=== PATIENT | male | born 1980 | race African-American/Black ===

== ENCOUNTER 2017-03-19 09:10 | Emergency (ER) | payer OTHER ==
[2017-03-19 09:26] VITALS: BP 174/115
--- NOTE | 2017-03-19 10:55 | UC ---
General HPI - HPI Summary HPI Summary: Patient presents with PMH of asthma. He states he recently started ice hockey and after he has been practicing he will leave the rink and later on has coughing spells. He states that the coughing when it occurs is nonproductive. He notes he has had two days where he felt nauseous. He states it is so severe that twice is has resulted in vomiting. He denies fever, chills, diarrhea, constipation, chest or abdominal pain, joint point, dyspnea associated with his symptoms. He denies any audible wheezing. He states he now is having rib pain with coughing, and at times his symptoms are worse at night. He does have albuterol but has not used it. Prior to the above the patient did have a cold which he feels has resolved. - History of Current Complaint Chief Complaint: UCGeneralIllness Stated Complaint: COUGH VOMITING Time Seen by Provider: 03/19/17 10:30 Hx Obtained From: Patient Onset/Duration: Lasting Days Timing: Intermittent Episodes Lasting: Onset Severity: Moderate Current Severity: Moderate Associated Signs & Symptoms: Positive: Cough, Nausea, Vomiting - Allergy/Home Medications Allergies/Adverse Reactions: Allergies Allergy/AdvReac Type Severity Reaction Status Date / Time No Known Allergies Allergy Verified 03/19/17 09:15 PMH/Surg Hx/FS Hx/Imm Hx Previously Healthy: Yes Respiratory History: Asthma - Surgical History Surgical History: Yes Surgery Procedure, Year, and Place: ORAL SURGERY - Family History Known Family History: Positive: Hypertension, Diabetes, Respiratory Disease - ASTHMA, Other - Hep C. - Social History Occupation: Employed Full-time Lives: Alone Alcohol Use: Weekly Alcohol Amount: 12 PACK/WEEK Substance Use Type: Marijuana Substance Use Comment - Amount & Last Used: no use in the last year Smoking Status (MU): Former Smoker Type: Cigarettes, Cigars Amount Used/How Often: 3 CIG/DAY Length of Time of Smoking/Using Tobacco: 15 years Have You Smoked in the Last Year: No When Did the Patient Quit Smoking/Using Tobacco: 03/08/16 Review of Systems Constitutional: Negative Skin: Negative Eyes: Negative ENT: Negative Respiratory: Cough Cardiovascular: Negative Gastrointestinal: Vomiting, Nausea Genitourinary: Negative Motor: Negative Neurovascular: Negative Musculoskeletal: Negative Neurological: Negative Psychological: Negative All Other Systems Reviewed And Are Negative: Yes Physical Exam Triage Information Reviewed: Yes Appearance: Well-Appearing Vital Signs: Initial Vital Signs Temp 97.5 F 03/19/17 09:15 Pulse 87 03/19/17 09:15 Resp 16 03/19/17 09:15 BP 174/115 03/19/17 09:15 Pulse Ox 100 03/19/17 09:15 Eye Exam: Normal ENT Exam: Normal Neck exam: Normal Neck: Positive: 1 Respiratory Exam: Normal Cardiovascular Exam: Normal Abdominal Exam: Normal Musculoskeletal Exam: Normal Neurological Exam: Normal Psychological Exam: Normal Skin Exam: Normal Course/Dx - Course Course Of Treatment: Patient presents with PMH of asthma and reports recent URI which resolved, and new activity ice hockey, following he has had nausea, vomiting x 2, and persistent coughing. The coughing he feels has caused rib pain , with no reported signs worrisome for ACS. He reports the rib pain is bilateral and occurs with the coghing only. The coughing also has resulted in vomiting x 2 episodes. He denies SOB, chest pain. I feel his symtpoms are related to a viral causing the nausea, and URI has caused a hyper-responsive ariway. He delcined a chest xray today. I did recommend that he use his albuterol routinely for the next 3-5 days especially before and after hockey. I gave his referral to PCP, and he already goes to [facility]. At the time of discharge he was hemodynamically stable and in agreement with the discharge plan. - Differential Dx - Multi-Symptom Differential Diagnoses: Other - bronchospasam nausea vomiting Provider Diagnoses: bronchospasam. nausea. vomiting Discharge - Discharge Plan Condition: Stable Disposition: HOME Prescriptions: Acetaminoph/Cod 120/12 mg LIQ* [Tylenol/Codeine 120/12 LIQ*] 10 ml PO Q4H PRN # 120 udc MDD 40 ml PRN Reason: Cough Benzonatate [TESSALON 200 MG CAP] 200 mg PO TID #14 cap Patient Education Materials: Bronchospasm (ED) Forms: *Work Release Referrals: [facility] [place] [facility] [Outside] Chris Jerome MD [Primary Care Provider] -
== END 2017-03-19 10:47 | disposition home or self-care (01) ==
LOC: UCEAST 09:10
DX: J98.01 Acute bronchospasm (principal); Z87.891 Personal history of nicotine dependence; R11.2 Nausea with vomiting, unspecified
CPT/HCPCS: 99212; G0463

== ENCOUNTER 2017-03-31 10:21 | Emergency (ER) | payer OTHER ==
[2017-03-31 11:09] VITALS: BP 186/115
--- NOTE | 2017-03-31 11:22 | UC ---
Abdominal Pain Male HPI - HPI Summary HPI Summary: Patient presents after being hit on right side of body during hockey by another player, has had rib pain on the outside of his left rib since this time. no pain with normal breathing, + pain with coughing, sneezing. has taken ibuprofen without relief. - also has elevated blood pressure. was dx'd by PCP years ago, started on BP meds 04/2016, only took a few doses. Since than patient states continues to run high around 180/100s when taking at drug stores. patient states he does not like his PCP so he didn't go back. - also has h/o asthma with increased coughing with activities. usually controlled with albuterol PRN and coughing, however unable to cough currently due to pain. no decrease in activities, wheezing. - History of Current Complaint Chief Complaint: UCGeneralIllness Stated Complaint: LEFT RIB INJURY Time Seen by Provider: 03/31/17 11:13 Hx Obtained From: Patient Onset/Duration: Sudden Onset, Lasting Days Severity Initially: Moderate Severity Currently: Moderate Character: Aching, Sharp - with coughing Aggravating Factor(s): Deep Breaths - coughing Associated Signs And Symptoms: Positive: Cough - Allergies/Home Medications Allergies/Adverse Reactions: Allergies Allergy/AdvReac Type Severity Reaction Status Date / Time No Known Allergies Allergy Verified 03/31/17 11:00 PMH/Surg Hx/FS Hx/Imm Hx Previously Healthy: No - htn, asthma - Surgical History Surgical History: Yes Surgery Procedure, Year, and Place: ORAL SURGERY - Family History Known Family History: Positive: Hypertension, Diabetes, Respiratory Disease - ASTHMA, Other - Hep C. - Social History Alcohol Use: Weekly Alcohol Amount: 12 PACK/WEEK Substance Use Type: Marijuana Substance Use Comment - Amount & Last Used: no use in the last year Smoking Status (MU): Former Smoker Type: Cigarettes, Cigars Amount Used/How Often: 3 CIG/DAY Length of Time of Smoking/Using Tobacco: 15 years Have You Smoked in the Last Year: No When Did the Patient Quit Smoking/Using Tobacco: 03/08/16 Review of Systems Respiratory: Cough Is Patient Immunocompromised?: No All Other Systems Reviewed And Are Negative: Yes Physical Exam Triage Information Reviewed: Yes Appearance: Well-Appearing, No Pain Distress, Well-Nourished Vital Signs: Initial Vital Signs Temp 98.8 F 03/31/17 11:02 Pulse 73 03/31/17 11:02 Resp 20 03/31/17 11:02 BP 186/115 03/31/17 11:02 Pulse Ox 98 03/31/17 11:02 Vital Signs Reviewed: Yes Eyes: Positive: Conjunctiva Clear Respiratory: Positive: Chest non-tender, Lungs clear, Normal breath sounds - diminish b/l LLs, No respiratory distress, No accessory muscle use. Negative: Crackles, Rhonchi, Stridor, Wheezing Cardiovascular: Positive: RRR, No Murmur, Pulses Normal, Brisk Capillary Refill Abdomen Description: Positive: No Organomegaly, Soft, Other: - tenderness over L lateral lower ribs with deep palpation. Negative: CVA Tenderness (R), CVA Tenderness (L) Musculoskeletal Exam: Normal Neurological Exam: Normal Psychological Exam: Normal Abd Pain Male Course/Dx - Course Course Of Treatment: HTN addressed- patient does not want to have treatment today regarding this, was educated on dangers of having blood pressure be this elevated- patient had prescription medication lisinopril 5mg from PCP with him , advised to restart taking medication, monitor BP daily, and follow up with PCP as soon as possible. Patient in agreement. radiograph neg for fracture, no splenomegaly, lidoderm patch and OTcs for pain. for asthma- chronic cough and SOB, using inhaler up to 5 times a day, started on steroid inhaled to decrease symptoms, follow up with PCP. - Differential Dx/Clinical Impression Provider Diagnoses: rib contusion, HTN Discharge - Discharge Plan Condition: Good Disposition: HOME Prescriptions: Beclomethasone 40 MCG MDI(NF) [Qvar 40 MCG MDI(NF)] 1 puff INH BID #1 mdi Lidocaine PATCH 5%* [Lidoderm 5% Patch*] 1 patch TRANSDERM DAILY #10 patch Patient Education Materials: Contusion in Adults (ED), Hypertension (ED) Referrals: Yola Guy MD [Primary Care Provider] - Additional Instructions: - motrin 600 mg every 6 hours for next 48 hours - Q-rad twice a day x 3 days to see if helps with symptoms- if no benefit may stop - FOllow up with primary physician regarding hypertension- educated on dangers of elevated BP- restart medication prescribed lisinopril 5mg and routine blood pressure checks 0 lidoderm patches as needed for pain, 12 hours on 12 hours off
--- NOTE | 2017-03-31 12:02 | RAD ---
Indication: Left lower rib pain. 3 views of left ribs demonstrates no fracture. No other bone or joint abnormality is identified. IMPRESSION: No fracture of left ribs is noted.
== END 2017-03-31 12:23 | disposition home or self-care (01) ==
LOC: UCEAST 10:21
DX: T14.8XXA Other injury of unspecified body region, initial encounter (principal); I10 Essential (primary) hypertension; W50.0XXA Accidental hit or strike by another person, initial encounter; Y93.69 Activity, other involving other sports and athletics played as a team or group
CPT/HCPCS: 99212; G0463

== ENCOUNTER 2017-05-19 13:42 | Emergency (ER) | payer OTHER ==
[2017-05-19 14:03] VITALS: BP 167/102
[2017-05-19] MEDS ORDERED: Benzonatate CAP* 100 MG PO ONE (14:51)
[2017-05-19] MEDS ORDERED: Benzonatate CAP* 100 MG ONE (14:53)
--- NOTE | 2017-05-19 14:53 | UC ---
Respiratory Complaint HPI - History of Current Complaint Chief Complaint: UCRespiratory Stated Complaint: COUGH Time Seen by Provider: 05/19/17 14:39 Hx Obtained From: Patient Onset/Duration: Gradual Onset Timing: Constant Severity Initially: Moderate Severity Currently: None Alleviating Factors: Bronchodilator Associated Signs And Symptoms: Positive: Fever, Chills - Allergies/Home Medications Allergies/Adverse Reactions: Allergies Allergy/AdvReac Type Severity Reaction Status Date / Time No Known Allergies Allergy Verified 03/31/17 11:00 PMH/Surg Hx/FS Hx/Imm Hx - Surgical History Surgical History: Yes Surgery Procedure, Year, and Place: ORAL SURGERY - Family History Known Family History: Positive: Hypertension, Diabetes, Respiratory Disease - ASTHMA, Other - Hep C. - Social History Alcohol Use: Weekly Alcohol Amount: 12 PACK/WEEK Substance Use Type: Marijuana Substance Use Comment - Amount & Last Used: no use in the last year Smoking Status (MU): Former Smoker Type: Cigarettes, Cigars Amount Used/How Often: 3 CIG/DAY Length of Time of Smoking/Using Tobacco: 15 years Have You Smoked in the Last Year: No When Did the Patient Quit Smoking/Using Tobacco: 03/08/16 Review of Systems Constitutional: Fever, Chills Skin: Negative Eyes: Negative ENT: Negative Respiratory: Cough Cardiovascular: Negative Genitourinary: Negative All Other Systems Reviewed And Are Negative: Yes Physical Exam Triage Information Reviewed: Yes Appearance: Well-Appearing, No Pain Distress, Well-Nourished Vital Signs: Initial Vital Signs Temp 37.2 C 05/19/17 13:57 Pulse 72 05/19/17 13:57 Resp 16 05/19/17 13:57 BP 167/102 05/19/17 13:57 Pulse Ox 99 05/19/17 13:57 Eye Exam: Normal ENT: Positive: Pharyngeal erythema, Nasal congestion Dental Exam: Normal Neck exam: Normal Neck: Positive: Supple, Nontender Respiratory: Positive: Chest non-tender, Lungs clear, Normal breath sounds, No respiratory distress, No accessory muscle use Cardiovascular: Positive: RRR, No Murmur Abdomen Description: Positive: Nontender, No Organomegaly, Soft Musculoskeletal Exam: Normal UC Diagnostic Evaluation - Laboratory O2 Sat by Pulse Oximetry: 99 Respiratory Course/Dx - Course Course Of Treatment: Patient did not want to stay for Xray since 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 He wanted tessalon for his cough. - Differential Dx/Diagnosis Differential Diagnosis/HQI/PQRI: Bronchitis, Lower Resp Infection, Sinusitis Provider Diagnoses: Viral illness Discharge - Discharge Plan Condition: Good Disposition: HOME Prescriptions: Benzonatate CAP* [Tessalon 100 MG CAP*] 100 mg PO TID PRN #15 cap PRN Reason: Cough Patient Education Materials: Cold Symptoms (ED) Forms: *Work Release Referrals: Yola Guy MD [Primary Care Provider] -
== END 2017-05-19 14:56 | disposition home or self-care (01) ==
LOC: UCEAST 13:42
DX: B34.9 Viral infection, unspecified (principal); Z87.891 Personal history of nicotine dependence
CPT/HCPCS: 99212; A9270-GY; G0463

== ENCOUNTER 2017-07-13 09:40 | Emergency (ER) | payer OTHER ==
[2017-07-13 09:53] VITALS: BP 156/117
--- NOTE | 2017-07-13 10:13 | UC ---
Respiratory Complaint HPI - HPI Summary HPI Summary: 37 yo male with cough/wheezing this AM no f/c no st or runny nose had flu 3-4 weeks ago no cp or sob - History of Current Complaint Chief Complaint: UCGeneralIllness Stated Complaint: CONGESTED, COUGH Time Seen by Provider: 07/13/17 09:57 Hx Obtained From: Patient Onset/Duration: Gradual Onset, Lasting Hours Timing: Constant Severity Initially: Moderate Severity Currently: Moderate Pain Intensity: 0 Pain Scale Used: 0-10 Numeric Character: Cough: Productive Aggravating Factors: Nothing Alleviating Factors: Bronchodilator Associated Signs And Symptoms: Positive: Wheezing - Allergies/Home Medications Allergies/Adverse Reactions: Allergies Allergy/AdvReac Type Severity Reaction Status Date / Time No Known Allergies Allergy Verified 07/13/17 09:49 Home Medications: Home Medications Lisinopril [Zestril 5 MG-] 5 mg PO DAILY 07/13/17 [History Confirmed 07/13/17] PMH/Surg Hx/FS Hx/Imm Hx Previously Healthy: Yes Cardiovascular History: Hypertension Respiratory History: Asthma - Surgical History Surgical History: Yes Surgery Procedure, Year, and Place: ORAL SURGERY - Family History Known Family History: Positive: Hypertension, Diabetes, Respiratory Disease - ASTHMA, Other - Hep C. - Social History Alcohol Use: Weekly Alcohol Amount: 12 PACK/WEEK Substance Use Type: Marijuana Substance Use Comment - Amount & Last Used: no use in the last year Smoking Status (MU): Former Smoker Type: Cigarettes, Cigars Amount Used/How Often: 3 CIG/DAY Length of Time of Smoking/Using Tobacco: 15 years Have You Smoked in the Last Year: No When Did the Patient Quit Smoking/Using Tobacco: 03/08/16 Review of Systems Constitutional: Negative Skin: Negative Eyes: Negative ENT: Negative Respiratory: Cough Cardiovascular: Negative Gastrointestinal: Negative Genitourinary: Negative Motor: Negative Neurovascular: Negative Musculoskeletal: Negative Neurological: Negative Psychological: Negative Is Patient Immunocompromised?: No All Other Systems Reviewed And Are Negative: Yes Physical Exam Triage Information Reviewed: Yes Appearance: Well-Appearing, No Pain Distress, Well-Nourished Vital Signs: Initial Vital Signs Temp 98 F 07/13/17 09:50 Pulse 82 07/13/17 09:50 Resp 15 07/13/17 09:50 BP 156/117 07/13/17 09:50 Pulse Ox 100 07/13/17 09:50 Vital Signs Reviewed: Yes Eyes: Positive: Conjunctiva Clear ENT: Positive: Hearing grossly normal, Uvula midline. Negative: Nasal congestion, Nasal drainage, Tonsillar swelling, Tonsillar exudate, Trismus, Muffled voice, Hoarse voice, Dental tenderness, Sinus tenderness Dental Exam: Normal Neck: Positive: Supple, Nontender, No Lymphadenopathy Respiratory: Positive: No respiratory distress, No accessory muscle use, Respiratory distress, Wheezing Cardiovascular: Positive: RRR, No Murmur Musculoskeletal: Positive: ROM Intact, No Edema Neurological: Positive: Alert Psychological Exam: Normal Skin Exam: Normal UC Diagnostic Evaluation - Laboratory O2 Sat by Pulse Oximetry: 100 - normal/not hypoxic Respiratory Course/Dx - Differential Dx/Diagnosis Provider Diagnoses: acute asthmatic bronchitis Discharge - Discharge Plan Condition: Stable Disposition: HOME Prescriptions: Amoxicillin PO (*) [Amoxicillin 875 MG (*)] 875 mg PO BID #14 tab Benzonatate CAP* [Tessalon CAP*] 100 - 200 mg PO TID PRN #28 cap PRN Reason: Cough predniSONE [Deltasone] 40 mg PO DAILY #10 tab Patient Education Materials: Acute Bronchitis (ED) Forms: *Work Release Referrals: No Primary Care Phys,NOPCP [Primary Care Provider] - Additional Instructions: use inhaler as directed recheck for new or worsening symptoms see your provider later this month as planned to have BP rechecked
== END 2017-07-13 10:30 | disposition home or self-care (01) ==
LOC: UCEAST 09:40
DX: J45.909 Unspecified asthma, uncomplicated (principal); Z87.891 Personal history of nicotine dependence
CPT/HCPCS: 99212; G0463

== ENCOUNTER 2017-07-16 12:22 | Emergency (ER) | payer OTHER ==
[2017-07-16 14:03] VITALS: BP 155/100
--- NOTE | 2017-07-16 15:55 | UC ---
Rohini Heard Julia, scribed for Efrain Gupta MD on 07/16/17 at 1503 . HPI Febrile Illness - HPI Summary HPI Summary: This patient is a 37 year old M presenting to [facility] [place] with a chief complaint of fever, reaching 102, for the past three days. Patient reports dizziness, one retching episode, increased inhaler use, and mild body aches. Patient denies nausea. Pt had dx of bronchitis on 07/13/17 and was prescribed Prednisone and Amoxicillin. - History of Current Complaint Chief Complaint: UCGeneralIllness Time Seen by Provider: 07/16/17 14:52 Hx Obtained From: Patient Onset/Duration: Started Days Ago, Still Present Timing: Constant Temperature: 102 F Pain Intensity: 0 Associated Signs and Symptoms: Other: - dizziness, one retching episode, increased inhaler use, and mild body aches Related History: Similar Diagnosis as: - bronchitis - Allergy/Home Medications Allergies/Adverse Reactions: Allergies Allergy/AdvReac Type Severity Reaction Status Date / Time No Known Allergies Allergy Verified 07/16/17 14:03 PMH/Surg Hx/FS Hx/Imm Hx Respiratory History: Asthma, Bronchitis - Surgical History Surgical History: Yes Surgery Procedure, Year, and Place: ORAL SURGERY - Family History Known Family History: Positive: Hypertension, Diabetes, Respiratory Disease - ASTHMA, Other - Hep C. - Social History Alcohol Use: Weekly Alcohol Amount: 12 PACK/WEEK Substance Use Type: Marijuana Substance Use Comment - Amount & Last Used: no use in the last year Smoking Status (MU): Former Smoker Type: Cigarettes, Cigars Amount Used/How Often: 3 CIG/DAY Length of Time of Smoking/Using Tobacco: 15 years Have You Smoked in the Last Year: No When Did the Patient Quit Smoking/Using Tobacco: 03/08/16 Review of Systems Constitutional: Fever Gastrointestinal: Vomiting - once Musculoskeletal: Myalgia - body aches Neurological: Other - dizzy All Other Systems Reviewed And Are Negative: Yes Physical Exam Triage Information Reviewed: Yes Vital Signs: Initial Vital Signs Temp 98.8 F 07/16/17 13:59 Pulse 79 07/16/17 13:59 Resp 16 07/16/17 13:59 BP 155/100 07/16/17 13:59 Pulse Ox 98 07/16/17 13:59 Vital Signs Reviewed: Yes - Additional Comments General: well-appearing, no pain distress Skin: warm, color reflects adequate perfusion, dry Head: normal Eyes: EOMI, KATHLEEN ENT: clear rhinorrhea Neck: supple, nontender Respiratory: CTA, breath sounds present Cardiovascular: RRR Abdomen: soft, nontender Bowel: present Musculoskeletal: normal, strength/ROM intact Neurological: normal, sensory/motor intact, A&O x3 Psychological: affect/mood appropriate Course/Dx - Course Course Of Treatment: OVER ALL, SX ARE IMPROVING BUT, STILL WITH LOW GRADE FEVERS. - Diagnoses Clinic Provider Diagnoses: BRONCHITIS Discharge - Discharge Plan Condition: Stable Disposition: HOME Patient Education Materials: Acute Bronchitis (ED) Forms: *School Release Referrals: [facility] [place] [facility] REFERRAL [Outside] No Primary Care Phys,NOPCP [Primary Care Provider] - Additional Instructions: FOLLOW UP WITH YOUR DOCTOR. TAKE IBUPROFEN DIRECTED NEEDED FOR FEVERS. GET RECHECKED FOR ANY WORSENING OF YOUR CONDITION OR QUESTIONS OR CONCERNS. The documentation as recorded by the Rohini le Julia accurately reflects the service I personally performed and the decisions made by me, Efrain Gupta MD.
== END 2017-07-16 15:21 | disposition home or self-care (01) ==
LOC: UCEAST 12:22
DX: J45.909 Unspecified asthma, uncomplicated (principal); R42 Dizziness and giddiness; M79.1 Myalgia; R50.9 Fever, unspecified; R11.10 Vomiting, unspecified; Z87.891 Personal history of nicotine dependence
CPT/HCPCS: 99211; G0463

== ENCOUNTER 2017-11-10 13:43 | Emergency (ER) | payer OTHER ==
[2017-11-10 14:38] VITALS: BP 168/92
--- NOTE | 2017-11-10 14:38 | UC ---
Enedina Heard Gabriel, scribed for Priya Sams MD on 11/10/17 at 1425 . Respiratory Complaint HPI - HPI Summary HPI Summary: This patient is a 37 year old M presenting to [facility] [place] progressively worse allergic reaaction. + cough related to "scratchy" throat. No fever / chills. No purulent drainage. No sob / cp. No rash. Has been using albuterol much more frequently last couple days, which helps symptoms. Has taken prednisone in the past, with improvement in sx. Denies h/a, chest pain, palpitations, sob, urinary sx / hematuria. Pt was instructed to call his PCP about his blood pressure several times. He was urged to see them this week. - History of Current Complaint Chief Complaint: UCRespiratory Stated Complaint: ALLERGIES Time Seen by Provider: 11/10/17 14:06 Hx Obtained From: Patient Onset/Duration: Lasting Days, Still Present Severity Initially: Mild Severity Currently: Mild Pain Intensity: 0 Pain Scale Used: 0-10 Numeric Character: Cough: Nonproductive Associated Signs And Symptoms: Positive: Negative - rash - Allergies/Home Medications Allergies/Adverse Reactions: Allergies Allergy/AdvReac Type Severity Reaction Status Date / Time No Known Allergies Allergy Verified 11/10/17 13:50 PMH/Surg Hx/FS Hx/Imm Hx Previously Healthy: Yes - being treated for htn Cardiovascular History: Hypertension Respiratory History: Asthma - Surgical History Surgical History: Yes Surgery Procedure, Year, and Place: ORAL SURGERY - Family History Known Family History: Positive: Hypertension, Diabetes, Respiratory Disease - ASTHMA, Other - Hep C. - Social History Occupation: Employed Full-time Lives: With Family Alcohol Use: Weekly Alcohol Amount: 12 PACK/WEEK Substance Use Type: Marijuana Substance Use Comment - Amount & Last Used: no use in the last year Smoking Status (MU): Former Smoker Type: Cigarettes, Cigars Amount Used/How Often: 3 CIG/DAY Length of Time of Smoking/Using Tobacco: 15 years Have You Smoked in the Last Year: No When Did the Patient Quit Smoking/Using Tobacco: 03/08/16 Review of Systems Skin: Negative - rash ENT: Other - scratchy throat Respiratory: Cough, Other - asthma exacerbation Cardiovascular: Negative Gastrointestinal: Negative Genitourinary: Negative Motor: Negative Neurovascular: Negative Musculoskeletal: Negative Neurological: Negative Psychological: Negative Is Patient Immunocompromised?: No All Other Systems Reviewed And Are Negative: Yes Physical Exam - Summary Physical Exam Summary: Appearance: Well-Nourished Eye Exam: Normal ENT Exam: right TM is scared, post nasal drip, posterior pharynx is erythematous. Neck: Normal, No adenopathy appreciated Respiratory Exam: Normal, no dyspnea, no tachypnea, normal respiratory rate. Chest non-tender, Lungs clear, Normal breath sounds, No respiratory distress, No accessory muscle use Cardiovascular Exam: Normal Cardiovascular: Heart rate regular, good general skin color, good capillary refill: RRR, No Murmur Abdominal Exam: Normal Abdomen Description: Nontender, No Organomegaly, Soft Bowel Sounds: Present Musculoskeletal Exam: Normal Musculoskeletal: Strength Intact Neurological Exam: Normal: nonfocal, grossly intact Psychological Exam: Normal: conversing easily and appropriately Skin Exam: Normal: no visible or reported rash Triage Information Reviewed: Yes Appearance: Well-Appearing, Well-Nourished - sitting up Vital Signs: Initial Vital Signs Temp 98 F 11/10/17 13:47 Pulse 80 11/10/17 13:47 Resp 16 11/10/17 13:47 BP 158/108 11/10/17 13:47 Pulse Ox 99 11/10/17 13:47 Vital Signs Reviewed: Yes UC Diagnostic Evaluation - Laboratory O2 Sat by Pulse Oximetry: 99 Respiratory Course/Dx - Course Course Of Treatment: Repeat blood pressure 168/92. Does not want to be evaluated further for BP. He will call doctor's office, for bp recheck this week. Aware to seek medicall attention for any problems. Questions as posed answered to the best of my ability. - Differential Dx/Diagnosis Provider Diagnoses: Worsening allergic sx. HTN Discharge - Sign-Out/Discharge Documenting (check all that apply): Discharge/Admit/Transfer - Discharge Plan Condition: Stable Disposition: HOME Patient Education Materials: Allergies (ED), General Allergic Reaction (ED), Hypertension (ED), Antihistamine (By mouth) Referrals: No Primary Care Phys,NOPCP [Primary Care Provider] - Yola Guy MD [Medical Doctor] - Additional Instructions: Your blood pressure was elevated during today's visit, 158/108. Please follow up with your primary care provider -THIS WEEK. Avoid decongestants. Drink plenty of fluids. Please seek medical attention for worse or new problems. - Billing Disposition and Condition Condition: STABLE Disposition: Home The documentation as recorded by the Enedina le Gabriel accurately reflects the service I personally performed and the decisions made by me, Priya Sams MD.
== END 2017-11-10 14:43 | disposition home or self-care (01) ==
LOC: UCEAST 13:43
DX: T78.40XA Allergy, unspecified, initial encounter (principal); X58.XXXA Exposure to other specified factors, initial encounter; R05 Cough; R07.0 Pain in throat; I10 Essential (primary) hypertension; Z87.891 Personal history of nicotine dependence; Z82.49 Family history of ischemic heart disease and other diseases of the circulatory system; Z83.3 Family history of diabetes mellitus; Z82.5 Family history of asthma and other chronic lower respiratory diseases
CPT/HCPCS: 99212; G0463

== ENCOUNTER 2018-07-08 10:22 | Emergency (ER) | payer OTHER ==
[2018-07-08 10:39] VITALS: BP 165/113
[2018-07-08] MEDS ORDERED: predniSONE TAB* 20 MG PO ONE (10:46)
--- NOTE | 2018-07-08 10:47 | UC ---
Respiratory Complaint HPI - HPI Summary HPI Summary: Patient is a 38-year-old male with a 4 day history of wheezing and productive cough. He has had no fever. He denies any shortness of breath or chest pain. He has very mild myalgias. He denies any sinus pressure or pain. His had asthma since a child. He is currently being treated for high blood pressure. Relying on his rescue inhaler. - History of Current Complaint Chief Complaint: UCRespiratory Stated Complaint: COUGH Time Seen by Provider: 07/08/18 10:29 Hx Obtained From: Patient Onset/Duration: Gradual Onset Timing: Constant Severity Initially: Mild Severity Currently: Moderate Pain Intensity: 2 Pain Scale Used: 0-10 Numeric Character: Cough: Nonproductive Aggravating Factors: Nothing Associated Signs And Symptoms: Positive: Wheezing Related History: Similar Episode/Dx as: - Bronchitis - Allergies/Home Medications Allergies/Adverse Reactions: Allergies Allergy/AdvReac Type Severity Reaction Status Date / Time No Known Allergies Allergy Verified 11/10/17 13:50 PMH/Surg Hx/FS Hx/Imm Hx Previously Healthy: Yes Cardiovascular History: Hypertension Respiratory History: Asthma, Bronchitis, Pneumonia - Surgical History Surgical History: Yes Surgery Procedure, Year, and Place: ORAL SURGERY - Family History Known Family History: Positive: Hypertension, Diabetes, Respiratory Disease - ASTHMA, Other - Hep C. - Social History Alcohol Use: Weekly Alcohol Amount: 6 weekly Substance Use Type: Marijuana Substance Use Comment - Amount & Last Used: occasionally Smoking Status (MU): Former Smoker Type: Cigarettes, Cigars Amount Used/How Often: 3 CIG/DAY Length of Time of Smoking/Using Tobacco: 15 years Have You Smoked in the Last Year: No When Did the Patient Quit Smoking/Using Tobacco: 03/08/16 Review of Systems All Other Systems Reviewed And Are Negative: Yes Constitutional: Positive: Negative Skin: Positive: Negative Eyes: Positive: Negative ENT: Positive: Negative Respiratory: Positive: Cough, Other - wheezing Cardiovascular: Positive: Negative Gastrointestinal: Positive: Negative Genitourinary: Positive: Negative Motor: Positive: Negative Neurovascular: Positive: Negative Musculoskeletal: Positive: Negative Neurological: Positive: Negative Psychological: Positive: Negative Physical Exam Triage Information Reviewed: Yes Appearance: Well-Appearing, No Pain Distress, Well-Nourished Vital Signs: Initial Vital Signs Temp 99.1 F 07/08/18 10:33 Pulse 80 07/08/18 10:33 Resp 20 07/08/18 10:33 BP 165/113 07/08/18 10:33 Pulse Ox 97 07/08/18 10:33 Vital Signs Reviewed: Yes Eyes: Positive: Conjunctiva Clear ENT: Positive: Hearing grossly normal, Uvula midline. Negative: Nasal congestion, Nasal drainage, Tonsillar swelling, Tonsillar exudate, Sinus tenderness Neck: Positive: Supple, Nontender, No Lymphadenopathy Respiratory: Positive: No respiratory distress, No accessory muscle use, Wheezing Cardiovascular: Positive: RRR Musculoskeletal: Positive: ROM Intact, No Edema Neurological: Positive: Alert Psychological Exam: Normal Skin Exam: Normal UC Diagnostic Evaluation - Laboratory O2 Sat by Pulse Oximetry: 97 - normal/not hypoxic Respiratory Course/Dx - Course Course Of Treatment: declines neb here - Differential Dx/Diagnosis Provider Diagnosis: Bronchospasm with bronchitis, acute Discharge - Sign-Out/Discharge Documenting (check all that apply): Patient Departure All imaging exams completed and their final reports reviewed: No Studies - Discharge Plan Condition: Stable Disposition: HOME Prescriptions: Azithromycin TAB* [Zithromax TAB*] 250 mg PO DAILY #6 tab Benzonatate CAP* [Tessalon CAP*] 100 - 200 mg PO TID PRN #28 cap PRN Reason: Cough predniSONE [Deltasone 20 MG TAB] 40 mg PO DAILY #10 tab Patient Education Materials: Acute Bronchitis (ED) Forms: *Work Release Additional Instructions: recheck in 4 days if not better see your MD for bp recheck in 2-8 weeks BP 165/113 - Billing Disposition and Condition Condition: STABLE Disposition: Home
== END 2018-07-08 11:00 | disposition home or self-care (01) ==
LOC: UCEAST 10:22
DX: J20.9 Acute bronchitis, unspecified (principal); J45.909 Unspecified asthma, uncomplicated; I10 Essential (primary) hypertension; M79.10 Myalgia, unspecified site; Z82.5 Family history of asthma and other chronic lower respiratory diseases; Z87.891 Personal history of nicotine dependence; Z87.01 Personal history of pneumonia (recurrent)
CPT/HCPCS: 99212; G0463; J7512

== ENCOUNTER 2019-05-12 13:51 | Emergency (ER) | payer OTHER ==
--- NOTE | 2019-05-12 14:13 | UC ---
Respiratory Complaint HPI - HPI Summary HPI Summary: 39 yo male presents with URI symptoms. He tells me that for the last 2 weeks he has had an intermittently productive cough. He has an albuterol inhaler at home which helps, but has noticed he is using it more frequently over the last week or so. Also has had sinus congestion and runny nose with yellow mucus. He has not been taking anything OTC for his symptoms. Denies fever, chills, sore throat , SOB, chest pain. He does smoke occasionally - History of Current Complaint Stated Complaint: COUGH Time Seen by Provider: 05/12/19 14:12 Hx Obtained From: Patient Onset/Duration: Gradual Onset Severity Initially: Mild Severity Currently: Mild Pain Intensity: 5 Pain Scale Used: 0-10 Numeric - Allergies/Home Medications Allergies/Adverse Reactions: Allergies Allergy/AdvReac Type Severity Reaction Status Date / Time No Known Allergies Allergy Verified 11/10/17 13:50 PMH/Surg Hx/FS Hx/Imm Hx Cardiovascular History: Hypertension Respiratory History: Asthma - Surgical History Surgical History: Yes Surgery Procedure, Year, and Place: ORAL SURGERY - Family History Known Family History: Positive: Hypertension, Diabetes, Respiratory Disease - ASTHMA, Other - Hep C. - Social History Lives: With Family Alcohol Use: Weekly Alcohol Amount: 6 weekly Substance Use Type: Marijuana Substance Use Comment - Amount & Last Used: occasionally Smoking Status (MU): Former Smoker Type: Cigarettes, Cigars Amount Used/How Often: 3 CIG/DAY Length of Time of Smoking/Using Tobacco: 15 years Have You Smoked in the Last Year: No When Did the Patient Quit Smoking/Using Tobacco: 03/08/16 Review of Systems All Other Systems Reviewed And Are Negative: No Constitutional: Positive: Negative Skin: Positive: Negative Eyes: Positive: Negative ENT: Positive: Nasal Discharge Respiratory: Positive: Cough Cardiovascular: Positive: Negative Gastrointestinal: Positive: Negative Neurological: Positive: Negative Psychological: Positive: Negative Physical Exam - Summary Physical Exam Summary: GENERAL: NAD. WDWN. No pain distress. SKIN: No rashes, sores, lesions, or open wounds. HEENT: Head: AT/NC Eyes: EOM intact. Conjunctiva clear without inflammation or discharge. Ears: Hearing grossly normal. TMs intact, no bulging, erythema, or edema. Nose: Nasal mucosa pink and moist. NTTP maxillary and frontal sinus. Throat: Posterior oropharynx without exudates, erythema, or tonsillar enlargement. Uvula midline. NECK: Supple. Nontender. No lymphadenopathy. CHEST: CTAB. No accessory muscle use. Breathing comfortably and in no distress. CV: RRR. Pulses intact. Cap refill <2seconds NEURO: Alert. PSYCH: Age appropriate behavior. Triage Information Reviewed: Yes Vital Signs: Vital Signs: Temp Pulse Resp BP Pulse Ox 98.3 F 78 18 158/90 98 05/12/19 14:11 05/12/19 14:11 05/12/19 14:11 05/12/19 14:11 05/12/19 14:11 Vital Signs Reviewed: Yes Respiratory Course/Dx - Course Course Of Treatment: Suspect viral cough/bronchitis. Will rx for prednisone and cough suppressants and have him be rechecked if symptoms do not improve - Differential Dx/Diagnosis Provider Diagnosis: Bronchitis Discharge ED - Sign-Out/Discharge Documenting (check all that apply): Patient Departure All imaging exams completed and their final reports reviewed: No Studies - Discharge Plan Condition: Stable Disposition: HOME Prescriptions: Benzonatate CAP* [Tessalon 100 MG CAP*] 100 mg PO TID PRN #21 cap PRN Reason: Cough Codeine Phosphate/Guaifenesin [Guaifen-Codeine 100-10 mg/5 ml] 5 ml PO BEDTIME PRN #35 ml MDD 5ml PRN Reason: Cough predniSONE TAB* [Deltasone 20 MG TAB*] 40 mg PO DAILY #10 tab Patient Education Materials: Acute Bronchitis (ED) Referrals: Yola Guy MD [Primary Care Provider] - Additional Instructions: If you develop a fever, shortness of breath, chest pain, new or worsening symptoms - please call your PCP or go to the ED immediately. Your blood pressure was high at todays visit. Please see your primary provider within 4 weeks for recheck and re-evaluation. - Billing Disposition and Condition Condition: STABLE Disposition: Home
[2019-05-12 14:17] VITALS: BP 158/90
[2019-05-12] MEDS ORDERED: Albuterol HFA INHALER* 8 gm MDI INH ONE (14:23)
== END 2019-05-12 14:36 | disposition home or self-care (01) ==
LOC: UCEAST 13:51
DX: J45.909 Unspecified asthma, uncomplicated (principal); I10 Essential (primary) hypertension; Z87.891 Personal history of nicotine dependence; Z79.899 Other long term (current) drug therapy
CPT/HCPCS: 99212; A9270-GY; G0463

== ENCOUNTER 2019-07-27 11:29 | Emergency (ER) | payer OTHER ==
[2019-07-27 12:07] VITALS: BP 198/125
--- NOTE | 2019-07-27 12:13 | UC ---
FLU HPI - HPI Summary HPI Summary: 39 yo male presents with GI symptoms. He tells me that last week his young son had a GI bug. On 07/25 pt developed nausea, vomiting, and diarrhea. He did supportive care and felt better yesterday with only one episode of vomiting. Today he feels better still and has not vomited, but has developed some sinus congestion and a cough. He is most concerned about the flu as he has a young son at home. He denies fever, chills, SOB, chest pain, abdominal pain, dysuria. His BP is elevated today. He has a hx of hypertension and has BP medication for this - he has not taken this in 3 days due to GI symptoms as above. He is not having any headache, dizziness, sob, chest pain, numbness, or tingling. - History of Current Complaint Chief Complaint: UCGeneralIllness Stated Complaint: VOMITTING Time Seen by Provider: 07/27/19 11:59 Hx Obtained From: Patient Onset/Duration: Sudden Onset Severity Currently: None Pain Intensity: 0 - Allergy/Home Medications Allergies/Adverse Reactions: Allergies Allergy/AdvReac Type Severity Reaction Status Date / Time No Known Allergies Allergy Verified 11/10/17 13:50 PMH/Surg Hx/FS Hx/Imm Hx Cardiovascular History: Hypertension Respiratory History: Asthma - Surgical History Surgical History: Yes Surgery Procedure, Year, and Place: ORAL SURGERY - Family History Known Family History: Positive: Hypertension, Diabetes, Respiratory Disease - ASTHMA, Other - Hep C. - Social History Lives: With Family Alcohol Use: Daily Alcohol Amount: 4-5 shots a day Substance Use Type: Marijuana Substance Use Comment - Amount & Last Used: rare Smoking Status (MU): Former Smoker Type: Cigarettes, Cigars Amount Used/How Often: 3 CIG/DAY Length of Time of Smoking/Using Tobacco: 15 years Have You Smoked in the Last Year: No When Did the Patient Quit Smoking/Using Tobacco: 03/08/16 Review of Systems All Other Systems Reviewed And Are Negative: No Constitutional: Positive: Negative Skin: Positive: Negative Eyes: Positive: Negative ENT: Positive: Nasal Discharge Respiratory: Positive: Cough Cardiovascular: Positive: Negative Gastrointestinal: Positive: Vomiting - resolved, Diarrhea - resolved, Nausea - resolved Genitourinary: Positive: Negative Neurovascular: Positive: Negative Neurological/Mental Status: Positive: Negative Psychological: Positive: Negative Physical Exam - Summary Physical Exam Summary: GENERAL: NAD. WDWN. No pain distress. SKIN: No rashes, sores, ulcers, masses, lesions. HEENT: Head: AT/NC. Eyes: PERRLA. EOM intact. Conjunctiva clear without inflammation or discharge. Ears: Hearing grossly normal. TMs intact, no bulging, erythema, or edema. Nose: Nasal mucosa pink and moist. NTTP maxillary and frontal sinus. Throat: Posterior oropharynx without exudates, erythema, or tonsillar enlargement. Uvula midline. NECK: Supple. Nontender. FROM CHEST: CTAB. No r/r/w. No accessory muscle use. Breathing comfortably and in no distress. CV: RRR. Pulses intact. Brisk cap refill. ABDOMEN: Soft. NTTP. Bowel sounds present MSK: FROM in B/L UEs and LEs with symmetric strength. NEURO: A&Ox3. CN: II: Peripheral calvillo intact. Vision normal. III, IV, : EOMI. No nystagmus. PERRLA. V: Sensations intact and symmetric. Opens mouth and clenches teeth. VII: No facial asymmetry. Forehead wrinkles. Grins, shuts eyes, frowns, puffs cheeks. VIII: Hearing intact to finger rub. IX, X: Swallows and coughs. Uvula midline. XI: Shrugs shoulders. Turns head against resistance. XII : No tongue deviation [id number] are intact. Gait with normal base. Romberg : maintains balance, no pronator drift. Normal speech. No facial drooping. PSYCH: Age appropriate behavior. Triage Information Reviewed: Yes Vital Signs: Initial Vital Signs Temp 99.4 F 07/27/19 11:59 Pulse 88 07/27/19 11:59 Resp 18 07/27/19 11:59 BP 198/125 07/27/19 11:59 Pulse Ox 99 07/27/19 11:59 Laboratory Tests 07/27/19 12:23 Influenza A (Rapid) Negative Influenza B (Rapid) Negative Albuterol HFA INHALER* [Ventolin HFA Inhaler*] 2 puff INH Q4H PRN 03/22/13 [ History Confirmed 05/12/19] Lisinopril [Zestril 5 MG-] 5 mg PO DAILY 07/13/17 [History Confirmed 05/12/19] Vital Signs Reviewed: Yes Flu Course/Dx - Course Course Of Treatment: POC flu negative. Suspect gastroenteritis that has resolved. Regarding his HTN: Initial BP was 203/128 and recheck as above. Although seemingly asymptomatic HTN - Given very elevated BP today, recommended going to ED for further evaluation and treatment to assess for end organ dz. Discussed this with pt and he did not want to go to the ED today. I made him aware that his BP is very high and he is at a significant risk of CVA/cardiac event that could cause permanent loss of function, disability, or . He stated he will go home and take his BP medications and go to the ER if his BP does not come down. - Differential Dx/Diagnosis Provider Diagnosis: Gastroenteritis, HTN (hypertension) Discharge ED - Sign-Out/Discharge Documenting (check all that apply): Patient Departure All imaging exams completed and their final reports reviewed: No Studies - Discharge Plan Condition: Stable Disposition: HOME-RECOMMEND TO ED Patient Education Materials: Viral Syndrome (ED) Forms: *Work Release Referrals: Yola Guy MD [Primary Care Provider] - Additional Instructions: FLU TEST NEGATIVE Your cough and cold symptoms seem related to a viral illness and should resolve with rest, time, and supportive over the counter medications. Drink plenty of fluids, especially if you are running any fever. Use salt water gargles several times a day. Take over the counter acetaminophen (Tylenol) or ibuprofen (Advil, Motrin) according to directions as needed for pain or fever. You may also use Chloraseptic spray or Cepacol lonzenges according to directions which contain a numbing medication and can provide some temporary relief from a sore throat. YOUR BLOOD PRESSURE IS DANGEROUSLY ELEVATED TODAY -- I recommend that you go to the ER now for further treatment of this. - Billing Disposition and Condition Condition: STABLE Disposition: Home-Recommend to ED - Attestation Statements Provider Attestation: I was available for consult. This patient was seen by the [facility]. The patient was not presented to, seen by, or examined by me. -Clotilde
[2019-07-27 12:35] LABS: Influenza A Molecular Negative (Negative); Influenza B Molecular Negative (Negative)
== END 2019-07-27 12:40 | disposition home health service (06) ==
LOC: UCEAST 11:29
DX: K52.9 Noninfective gastroenteritis and colitis, unspecified (principal); I10 Essential (primary) hypertension; J45.909 Unspecified asthma, uncomplicated; R05 Cough; Z87.891 Personal history of nicotine dependence
CPT/HCPCS: 99211; G0463

== ENCOUNTER 2022-12-01 18:52 | Inpatient (IN) ==
[2022-12-01] MEDS ORDERED: Thiamine 100 MG/ML 2 ml VIAL 100 MG, Folic Acid IV 1 MG, Multiple Vitamin IV ADULT 10 M... IV ONE (20:47)
[2022-12-01] MEDS ORDERED: Lorazepam PYXIS KEY PRN (20:48)
[2022-12-01] MEDS ORDERED: LORazepam 2 mg VIAL 1 ml IV PUSH ONE (20:48)
[2022-12-01 21:23] LABS: Hematocrit 42.1 % (38-53); Hemoglobin 14.4 g/dL (13.2-16.3); Mean Corpuscular Hemoglobin 34.6 pg (27-33); Mean Corpuscular Hgb Conc 34.2 g/dL (31-36); Mean Corpuscular Volume 101.1 fL (80-97); Red Blood Count 4.16 10^6/uL (4.06-5.63); White Blood Count 5.4 10^3/uL (3.6-10.2)
[2022-12-01 21:30] LABS: Activated Partial Thrombo Time 29.8 seconds (26.0-38.0); INR 1.19 (0.88-1.18)
[2022-12-01 21:37] LABS: Direct Bilirubin 1.9 mg/dL (0.03-0.18); Indirect Bilirubin 2.1 mg/dL (0.3-1.0)
[2022-12-01 21:38] LABS: ALT 55 U/L (7-52); AST 218 U/L (13-39); Acetaminophen < 15 mcg/mL; Albumin 4.3 g/dL (3.2-5.2); Albumin/Globulin Ratio 1.2 (1-3); Alcohol, S < 13 mg/dL (<13); Alkaline Phosphatase 227 U/L (35-149); Anion Gap 25 mmol/L (2-16); Blood Urea Nitrogen 16 mg/dL (6-24); CO2 Carbon Dioxide 29 mmol/L (22-32); Calcium 9.4 mg/dL (8.6-10.3); Chloride 83 mmol/L (101-111); Creatinine, Serum 1.01 mg/dL (0.67-1.17); Globulin 3.7 g/dL (2-4); Glucose 170 mg/dL (70-100); Magnesium 1.3 mg/dL (1.9-2.7); Potassium 2.9 mmol/L (3.5-5.0); Salicylate < 2.50 mg/dL (<30); Sodium 137 mmol/L (135-145); eGFR CKD-EPI 95.2 (>60)
[2022-12-01 21:39] LABS: ABS Lymphocytes 0.6 10^3/uL (1.0-4.8); ABS Monocytes 0.3 10^3/uL (0.0-1.1); ABS Neutrophils 4.4 10^3/uL (1.5-7.6); ABS Nucleated RBC 0.01 10^3/ul; Lymphocyte % 11.6 %; Mean Platelet Volume 9.6 fL (7.5-11.2); Nucleated Red Blood Cells % 0.2 /100 WBC (0.0-0.4); Platelet Count 43 10^3/uL (150-450)
[2022-12-01 21:52] LABS: TSH Ultra Thyroid Stim Horm 3.09 mcIU/mL (0.34-5.60)
[2022-12-01] MEDS ORDERED: Magnesium Sulf 4 GM/100 ML IV 4,000 MG/100 ML BAG IVPB ONE (22:04)
[2022-12-01] MEDS: Potassium Chlor 20 meq TAB.ER PO SCH (23:49)
[2022-12-02 01:02] LABS: Folate 3.52 ng/mL (5.90-24.80)
[2022-12-02 01:03] LABS: Vitamin B12 1139 pg/mL (180-914)
[2022-12-02] MEDS: Potassium Chlor 20 meq TAB.ER PO SCH (01:34)
[2022-12-02] MEDS ORDERED: Albuterol 2.5mg/3 ml (0.083%) NEB.SOLN INH PRN (03:38)
[2022-12-02] MEDS ORDERED: Lorazepam PYXIS KEY PRN (04:57)
[2022-12-02] MEDS: LORazepam 2 mg VIAL 1 ml IV PUSH SCH ×7 (05:08→16:15)
[2022-12-02 06:07] LABS: ABS Lymphocytes 1.4 10^3/uL (1.0-4.8); ABS Monocytes 0.4 10^3/uL (0.0-1.1); ABS Neutrophils 4.6 10^3/uL (1.5-7.6); Hematocrit 35.2 % (38-53); Hemoglobin 12.3 g/dL (13.2-16.3); Lymphocyte % 21.9 %; Mean Corpuscular Hemoglobin 35.5 pg (27-33); Mean Corpuscular Hgb Conc 34.8 g/dL (31-36); Mean Corpuscular Volume 102.1 fL (80-97); Mean Platelet Volume 9.9 fL (7.5-11.2); Nucleated Red Blood Cells % 0.1 /100 WBC (0.0-0.4); Platelet Count 34 10^3/uL (150-450); Red Blood Count 3.45 10^6/uL (4.06-5.63); Red Cell Distribution Width 12.6 % (12-17); White Blood Count 6.3 10^3/uL (3.6-10.2)
[2022-12-02 06:20] LABS: INR 1.2 (0.88-1.18)
[2022-12-02 06:21] LABS: Protime (Maddrey) 13.3 seconds (9.5-12.8)
[2022-12-02 06:24] LABS: Albumin 3.7 g/dL (3.2-5.2); Albumin/Globulin Ratio 1.3 (1-3); Calcium 8.6 mg/dL (8.6-10.3); Creatinine, Serum 1.02 mg/dL (0.67-1.17); Globulin 2.8 g/dL (2-4); Magnesium 2.1 mg/dL (1.9-2.7); Potassium 3.4 mmol/L (3.5-5.0); Total Bilirubin 3.9 mg/dL (0.2-1.0); Total Protein 6.5 g/dL (6.4-8.9); eGFR CKD-EPI 94.1 (>60)
[2022-12-02] MEDS ORDERED: Lactulose 30 ml UDC PO PRN (08:24)
[2022-12-02] MEDS ORDERED: LORazepam 2 mg VIAL 1 ml IV PUSH SCH (09:43)
[2022-12-02] MEDS: Potassium Chlor 20 meq TAB.ER PO ONE ×2 (10:03→17:57)
[2022-12-02] MEDS: Multivitamins/Minerals TAB PO SCH ×2 (10:03→17:58)
[2022-12-02] MEDS ORDERED: Lactated Ringers 1000 ml BAG 1,000 ML IV ONE (13:19)
[2022-12-02] MEDS: Thiamine 100 MG/ML 2 ml VIAL 100 MG in NS 0.9% 50 ML 50 ML IV SCH (16:16)
[2022-12-03] MEDS: LORazepam 2 mg VIAL 1 ml IV PUSH SCH ×3 (04:07→07:51)
[2022-12-03 06:03] LABS: ABS Monocytes 0.4 10^3/uL (0.0-1.1); ABS Neutrophils 4.3 10^3/uL (1.5-7.6); ABS Nucleated RBC 0.01 10^3/ul; Eosinophil % 0.1 %; Hematocrit 32.9 % (38-53); Hemoglobin 11.3 g/dL (13.2-16.3); Lymphocyte % 18.3 %; Mean Corpuscular Hgb Conc 34.5 g/dL (31-36); Mean Corpuscular Volume 101.4 fL (80-97); Mean Platelet Volume 10.5 fL (7.5-11.2); Nucleated Red Blood Cells % 0.2 /100 WBC (0.0-0.4); Platelet Count 32 10^3/uL (150-450); Red Blood Count 3.24 10^6/uL (4.06-5.63); Red Cell Distribution Width 12.7 % (12-17); White Blood Count 5.7 10^3/uL (3.6-10.2)
[2022-12-03 06:19] LABS: Calcium 9.2 mg/dL (8.6-10.3); Creatinine, Serum 0.89 mg/dL (0.67-1.17); Magnesium 1.6 mg/dL (1.9-2.7); Phosphorus 1.1 mg/dL (2.5-5.0); Potassium 3.1 mmol/L (3.5-5.0); eGFR CKD-EPI 109.7 (>60)
[2022-12-03] MEDS ORDERED: Magnesium Sulfate IV 3 GM in NS 0.9% 100 ml BAG 100 ML IVPB ONE (07:24)
[2022-12-03] MEDS ORDERED: Potassium EFFERVES 25 meq TAB PO ONE (07:24)
[2022-12-03] MEDS: Multivitamins/Minerals TAB PO SCH (07:51)
[2022-12-03] MEDS ORDERED: Potassium Phosphate IV 10 MMOL in NS 0.9% 250 ml 250 ML IVPB ONE (10:45)
[2022-12-03] MEDS: Thiamine 100 MG/ML 2 ml VIAL 100 MG in NS 0.9% 50 ML 50 ML IV SCH (15:50)
[2022-12-04] MEDS ORDERED: Albuterol HFA INHALER 8 gm MDI INH PRN (05:42)
[2022-12-04 06:27] LABS: Blood Urea Nitrogen 12 mg/dL (6-24); CO2 Carbon Dioxide 27 mmol/L (22-32); Calcium 8.5 mg/dL (8.6-10.3); Chloride 96 mmol/L (101-111); Glucose 122 mg/dL (70-100); Sodium 133 mmol/L (135-145)
[2022-12-04 06:52] LABS: Anion Gap 10 mmol/L (2-16)
[2022-12-04 07:26] LABS: ABS Lymphocytes 1.1 10^3/uL (1.0-4.8); ABS Monocytes 0.4 10^3/uL (0.0-1.1); ABS Neutrophils 3.4 10^3/uL (1.5-7.6); ABS Nucleated RBC 0.01 10^3/ul; Eosinophil % 0.7 %; Hematocrit 28.6 % (38-53); Hemoglobin 9.9 g/dL (13.2-16.3); Lymphocyte % 21.7 %; Mean Corpuscular Hemoglobin 35.5 pg (27-33); Mean Corpuscular Hgb Conc 34.6 g/dL (31-36); Mean Corpuscular Volume 102.6 fL (80-97); Mean Platelet Volume 10.8 fL (7.5-11.2); Nucleated Red Blood Cells % 0.2 /100 WBC (0.0-0.4); Platelet Count 42 10^3/uL (150-450); Red Blood Count 2.78 10^6/uL (4.06-5.63); Red Cell Distribution Width 12.5 % (12-17); White Blood Count 4.9 10^3/uL (3.6-10.2)
[2022-12-04 07:32] LABS: Magnesium 1.6 mg/dL (1.9-2.7); Phosphorus 2.4 mg/dL (2.5-5.0)
[2022-12-04] MEDS ORDERED: Magnesium Sulfate 2 gm BAG 2 GM/50 ML BAG IVPB ONE (07:50)
[2022-12-04 08:02] LABS: Potassium Redraw 2.6 mmol/L (3.5-5.0)
[2022-12-04] MEDS ORDERED: Magnesium Sulfate IV 3 GM in NS 0.9% 100 ml BAG 100 ML IVPB ONE (08:09)
[2022-12-04] MEDS ORDERED: Potassium EFFERVES 25 meq TAB PO ONE ×2 (08:09→17:36)
[2022-12-04] MEDS: Multivitamins/Minerals TAB PO SCH (08:34)
[2022-12-04] MEDS: KCL 20 MEQ/100 ML IVPREMIX 20 MEQ/100 ML BAG IV SCH ×3 (09:42→17:13)
[2022-12-04] MEDS ORDERED: Potassium Phosphate IV 5 MMOL in NS 0.9% 250 ml 250 ML IVPB ONE (11:24)
[2022-12-04] MEDS: Thiamine 100 MG/ML 2 ml VIAL 100 MG in NS 0.9% 50 ML 50 ML IV SCH (16:35)
[2022-12-04 17:08] LABS: Calcium 8.6 mg/dL (8.6-10.3); Creatinine, Serum 0.57 mg/dL (0.67-1.17); Magnesium 2.4 mg/dL (1.9-2.7); Phosphorus 1.7 mg/dL (2.5-5.0); Potassium 3.6 mmol/L (3.5-5.0); eGFR CKD-EPI 125.5 (>60)
[2022-12-05 07:07] LABS: ABS Lymphocytes 1.1 10^3/uL (1.0-4.8); ABS Monocytes 0.7 10^3/uL (0.0-1.1); ABS Neutrophils 3.3 10^3/uL (1.5-7.6); ABS Nucleated RBC 0.01 10^3/ul; Eosinophil % 0.7 %; Hemoglobin 10.5 g/dL (13.2-16.3); Lymphocyte % 21.8 %; Mean Corpuscular Hemoglobin 35.2 pg (27-33); Mean Corpuscular Hgb Conc 33.9 g/dL (31-36); Mean Corpuscular Volume 103.6 fL (80-97); Mean Platelet Volume 10.2 fL (7.5-11.2); Nucleated Red Blood Cells % 0.3 /100 WBC (0.0-0.4); Platelet Count 67 10^3/uL (150-450); Red Blood Count 2.99 10^6/uL (4.06-5.63); Red Cell Distribution Width 12.5 % (12-17); White Blood Count 5.1 10^3/uL (3.6-10.2)
[2022-12-05 07:18] LABS: Albumin 3.3 g/dL (3.2-5.2); Albumin/Globulin Ratio 1.3 (1-3); Calcium 8.5 mg/dL (8.6-10.3); Creatinine, Serum 0.52 mg/dL (0.67-1.17); Direct Bilirubin 1.3 mg/dL (0.03-0.18); Globulin 2.6 g/dL (2-4); Magnesium 1.6 mg/dL (1.9-2.7); Phosphorus 1.8 mg/dL (2.5-5.0); Potassium 3.8 mmol/L (3.5-5.0); Total Bilirubin 2.3 mg/dL (0.2-1.0); Total Protein 5.9 g/dL (6.4-8.9); eGFR CKD-EPI 129.1 (>60)
[2022-12-05 07:21] VITALS: BP 148/93
== END 2022-12-05 07:11 | disposition left against medical advice (07) | DRG 770 ==
LOC: ED 18:52 → EDHOLD 18:52 → SUATTDRO 23:20 → MEDTELE 12-02 03:58
PROVIDERS: ADMIT Internal Medicine; ATTEND Internal Medicine